=== PATIENT | female | born 1995 | race Caucasian/White ===

== ENCOUNTER 2016-08-14 06:35 | Emergency (ER) | payer BC, OTHER ==
[2016-08-14] MEDS ORDERED: ONDANSETRON 4 MG/2 ML VIAL IVP ONE (07:09)
[2016-08-14] MEDS ORDERED: NS 1,000 ML IV ONE (07:09)
--- NOTE | 2016-08-14 07:12 | EDPHY ---
H & P Stated Complaint: RLQ pain Time Seen by Provider: 08/14/16 06:59 HPI/ROS: CHIEF COMPLAINT: Abdominal pain HISTORY OF PRESENT ILLNESS: The patient is a 21 year old female presenting with left lower quadrant pain that woke her from sleep at 4:30am. She took 4 Advil but her pain was unrelieved. Her pain is a cramping sensation. The patient has an IUD that was placed 03/2015. She has irregular periods. Her LMP was 2 weeks ago, it was heavy and lasted for 9 days. She denies urinary complaints. No vomiting or diarrhea. No fevers, chills, hematuria, dysuria, rash, headache, lightheadedness, syncope. No hx of pregnancies. REVIEW OF SYSTEMS: Aside from elements discussed in the HPI, a comprehensive 10-point review of systems was reviewed and is negative. PAST MEDICAL HISTORY: Appendectomy SOCIAL HISTORY: Non smoker. Occasional marijuana use. Occasional alcohol, no alcohol last night. VITAL SIGNS: Reviewed by me GENERAL: Well-developed, well-nourished, resting comfortably in no respiratory distress. HEENT: Atraumatic. Eyes: No icterus, no injection. Mouth: moist mucous membranes. No erythema or lesions. Neck: supple with no adenopathy. LUNGS: Clear to auscultation bilaterally, no wheezes, rhonchi or rales. CARDIAC: Regular rate and rhythm, no rubs, murmurs or gallops. ABDOMEN: Left adnexa, Left lower quadrant, Left mid abdominal tenderness, voluntary guarding. No rebound. No distention. BACK: Inconsistent left CVA tenderness. EXTREMITIES: No trauma. No edema. Range of motion is normal throughout. NEURO: Alert and oriented, grossly nonfocal. SKIN: Warm and dry, no rash. PSYCHIATRIC: Normal mentation, no agitation. Portions of this note were transcribed by a medical assistant prn. I personally performed a history, physical exam, medical decision making, and confirmed accuracy of information the transcribed note. - Personal History LMP (Females 10-55): IUD In Place - Medical/Surgical History Hx Asthma: No Hx Chronic Respiratory Disease: No Hx Diabetes: No Hx Cardiac Disease: No Hx Renal Disease: No Hx Cirrhosis: No Hx Alcoholism: No Hx HIV/AIDS: No Hx Splenectomy or Spleen Trauma: No Other PMH: [place] teeth, APPY - Social History Smoking Status: Never smoked Constitutional: Initial Vital Signs Temperature (C) 36.8 C 08/14/16 06:42 Heart Rate 89 08/14/16 06:42 Respiratory Rate 20 08/14/16 06:42 Blood Pressure 95/76 L 08/14/16 06:42 O2 Sat (%) 96 08/14/16 06:42 O2 Delivery Mode Room Air Allergies/Adverse Reactions: No Known Allergies Allergy (Unverified 08/14/16 06:42) Home Medications: Medication Instructions Recorded FOCALIN 04/16/16 Zoloft 25mg (*) 04/16/16 Cephalexin [Keflex (RX)] 500 mg PO TID 7 Days 08/14/16 Hydrocodone/APAP 5/325 [[place] 1 tab PO Q6H PRN #10 tab 08/14/16 5/325 (RX)] Medical Decision Making - Diagnostics Imaging: Study: Ultrasound of the pelvis was obtained. Results: 1. Debris in the urinary bladder is consistent with either hematuria or a UTI. 2. IUD in good position Images were interpreted by the radiologist, Dr. Clay. I viewed the images myself on the PACS system. ED Course/Re-evaluation: IV was established. The patient received IV Dilaudid, Zofran, and fluids. Plan for pelvic ultrasound and urinalysis. Pelvic ultrasound is normal. UA appears infected. Plan to treat early pyelonephritis with 1gm Ceftriaxone in the ED and discharge home with Keflex. Differential Diagnosis: The differential diagnosis for the patient's abdominal pain was considered including but not limited to ovarian cyst, pelvic inflammatory disease, ovarian torsion, urinary tract infection, related complications. - Data Points Laboratory Results: Laboratory Results 08/14/16 07:15 08/14/16 07:15 Microbiology Results: MICROBIOLOGY 08/14/16 08:40 Urine,Clean Catch Urine Culture - Final Escherichia Coli Medications Given: Discontinued Medications Hydromorphone HCl (Dilaudid) 1 mg IVP EDNOW ONE Stop: 08/14/16 08:01 Last Admin: 08/14/16 07:28 Dose: 1 mg Sodium Chloride (Ns) 1,000 mls @ 0 mls/hr IV ONCE ONE PRN Reason: Wide Open Stop: 08/14/16 07:10 Last Admin: 08/14/16 07:28 Dose: 1,000 mls Ceftriaxone Sodium/Dextrose (Rocephin 1 Gm (Premix)) 50 mls @ 100 mls/hr IV EDNOW ONE PRN Reason: Protocol Stop: 08/14/16 09:53 Last Admin: 08/14/16 09:37 Dose: 50 mls Ondansetron HCl (Zofran) 4 mg IVP EDNOW ONE Stop: 08/14/16 07:10 Last Admin: 08/14/16 07:28 Dose: 4 mg Departure - Departure Disposition: Home, Routine, Self-Care Clinical Impression: Pyelonephritis, Lower abdominal pain Condition: Good Instructions: Kidney Infection (ED) Additional Instructions: 1. Take full course of Keflex as prescribed. 2. Drink plenty of fluids. 3. Followup with your primary care physician if you continues to have symptoms. 4. Return to the Emergency Department with new or worsening symptoms. 5. Okay to take [place] if needed for severe pain. Otherwise, I recommend ibuprofen on a regular basis. 6. Return to the emergency department or seek care urgently if you develop fever , worsening pain, vomiting, or other concerns. Referrals: [facility] [Outside] - As per Instructions Prescriptions: Cephalexin [Keflex (RX)] 500 mg PO TID 7 Days Hydrocodone/APAP 5/325 [[place] 5/325 (RX)] 1 tab PO Q6H PRN #10 tab PRN Reason: Pain Report Scribed for: Divya Craig Report Scribed by: Nichole Obrien Date of Report: 08/14/16 Time of Report: 07:12
[2016-08-14 07:36] LABS: % IMMATURE GRANULYOCYTES 0.2 % (0.0-1.1); ABSOLUTE IMMATURE GRANULOCYTES 0.02 10^3/uL (0.00-0.10); ADD DIFF? NO; ADD MORPH? NO; ADD SCAN? NO; ATYPICAL LYMPHOCYTE FLAG 0 (0-99); FRAGMENT RBC FLAG 20 (0-99); HEMATOCRIT 42.8 % (38.0-47.0); HEMOGLOBIN 14.9 g/dL (12.6-16.3); LEFT SHIFT FLG 0 (0-99); LIPEMIA HEMOLYSIS FLAG 90 (0-99); MEAN CELL HEMOGLOBIN 32.7 pg (27.9-34.1); MEAN CELL HEMOGLOBIN CONCENTR. 34.8 g/dL (32.4-36.7); MEAN CELL VOLUME 93.9 fL (81.5-99.8); MEAN PLATELET VOLUME 9.6 fL (8.7-11.7); PLATELET CLUMPS FLAG 0 (0-99); PLATELET COUNT 283 10^3/uL (150-400); RED BLOOD CELL COUNT 4.56 10^6/uL (4.18-5.33); RED CELL DISTRIBUTION WIDTH 12.6 % (11.5-15.2)
[2016-08-14 07:56] LABS: ANION GAP 11 mEq/L (8-16); CALCIUM 9.5 mg/dL (8.5-10.4); CARBON DIOXIDE 22 mEq/l (22-31); CHLORIDE 105 mEq/L (97-110); CREATININE 0.7 mg/dL (0.6-1.0); GLOMERULAR FILTRATION RATE > 60; GLUCOSE 79 mg/dL (70-100); POTASSIUM 4.4 mEq/L (3.5-5.2); SODIUM 138 mEq/L (134-144)
[2016-08-14] MEDS ORDERED: HYDROmorphONE/DILAUDID 1 MG/ML SYR IVP ONE (08:00)
[2016-08-14 08:52] LABS: COLOR YELLOW; LEUKOCYTE ESTERASE,URINE TRACE (NEGATIVE); NITRITE,URINE POSITIVE (NEGATIVE)
[2016-08-14 09:01] LABS: BACTERIA 3+ /hpf (NONE SEEN); MUCUS 1+ /lpf (NONE-1+)
--- NOTE | 2016-08-14 09:25 | US ---
Ultrasound Pelvis Complete (Transabdominal and Endovaginal) History: Abdominal pain, possible ovarian cyst. LMP: July 27, 2016 Technique: Transabdominal and endovaginal ultrasound images were obtained. Endovaginal images obtaine d for better evaluation of the uterine myometrium and adnexa. Duplex doppler is used to evaluate the ovarian bloodflow. Findings: There is prominent mobile debris in the urinary bladder suggesting either hematuria or a ur inary tract infection. An IUD is in normal position within the uterus. The uterus is normal in size. I suspect the patient h as a mildly septate uterus. No uterine masses are present. The uterus measures 8.5 x 3.1 x 5.8 cm. Th e endometrial measures 5 mm in thickness. The ovaries are normal in size. The right ovary measures 4. 8 x 2.2 x 3 cm. The left ovary measures 4.7 x 3.3 x 2.2 cm. There is a small 1.6 x 1.2 x 1 cm complex cyst in the right ovary likely represents a small corpus luteum cyst There is a trace of free fluid identified in the pelvis. Color and pulsed duplex doppler flow is identified in both ovaries . Resis tive index = 0.53 on the right and 0.55 on the left. Impression: 1. Debris in the urinary bladder is consistent with either hematuria or a UTI. 2. IUD in good position Results called to Dr. Craig.
[2016-08-14 10:06] VITALS: BP 115/69; PULSE 80; RESP 16; TEMP 97.9; O2SAT 100
== END 2016-08-14 10:04 | disposition home or self-care (01) ==
DX: N12 Tubulo-interstitial nephritis, not specified as acute or chronic (principal)
CPT/HCPCS: 96365; J0696; J1170; J2405